=== PATIENT | male | born 1985 | race Caucasian/White ===

== ENCOUNTER 2021-05-08 09:02 | Day surgery (SDC) | payer BC ==
[~2021-05-08] VITALS: Ht 182.9 cm; Wt 93.1 kg
[~2021-05-08 09:02] MED LIST: HYDR-2761 PO; IV RINGERS,LACTATED 1000ML 1,000 ML IV SCH; PROCHLORPERAZINE 10 MG/2 ML VIAL. IVP PRN; fentaNYL PF VIAL 100 MCG/2 ML VIAL IVP PRN
[2021-05-08 09:32] VITALS: BP 125/59
[2021-05-08] MEDS ORDERED: BUPIVACAINE MPF 0.25% 30 ML VIAL. ONE ×2 (10:31)
[2021-05-08] MEDS ORDERED: fentaNYL PF VIAL 100 MCG/2 ML VIAL ONE ×3 (10:43→13:51)
[2021-05-08] MEDS ORDERED: DEXAMETHASONE SOD PHOS 20 MG/5 ML VIAL. ONE (10:43)
[2021-05-08] MEDS ORDERED: LIDOCAINE 2% PF 5 ML VIAL. ONE ×2 (10:43→13:01)
[2021-05-08] MEDS ORDERED: PROPOFOL 10 MG/ML (20ML) VIAL. IV ONE ×2 (10:43→13:35)
[2021-05-08] MEDS ORDERED: MIDAZOLAM HCL/PF 2 MG/2 ML VIAL. ONE (10:43)
[2021-05-08] MEDS ORDERED: ONDANSETRON PF 4 MG/2 ML VIAL. ONE (12:54)
[2021-05-08] MEDS ORDERED: KETOROLAC 30 MG/ML VIAL. ONE (12:55)
[2021-05-08] MEDS ORDERED: MORPHINE SULFATE 2 MG/ML INJ. ONE (13:10)
[2021-05-08] MEDS ORDERED: ACETAMINOPHEN 325 MG TABLET. PO ONE (13:30)
[2021-05-08] MEDS ORDERED: DEXTROSE 50% 25 GM / 50ML DISP.SYRIN. IV PRN (13:30)
[2021-05-08] MEDS ORDERED: POLYETHYLENE GLYCOL 3350 17 GM PACKET. PO PRN (13:30)
[2021-05-08] MEDS ORDERED: ONDANSETRON PF 4 MG/2 ML VIAL. IVP PRN (13:30)
[2021-05-08] MEDS ORDERED: GABAPENTIN 100 MG CAPSULE. PO ONE (13:30)
[2021-05-08] MEDS ORDERED: oxyCODONE/APAP 5/325 1 TAB TABLET PO ONE (13:30)
[2021-05-08] MEDS ORDERED: SEVOFLURANE 61 TO 120 MINUTES. IH ONE (13:36)
--- NOTE | 2021-05-08 13:36 | PDOC4 ---
OPERATIVE NOTE Date: Date: May 08, 2021 Pre-Op Diagnosis: Left ankle bimalleolar equivalent fracture Post-Op Diagnosis: Same as above Procedure Performed: Left ankle fracture open reduction and internal fixation with syndesmotic joint stabilization Surgeon: Asher Wheatley DPM Anesthesia Type: General Blood Loss: 5 cc Specimans Obtained: None Findings: Long spiral fracture to the distal fibula, significant disruption of the syndesmotic ligament/memory and distal syndesmotic joint with gross instability upon stress. Following the syndesmotic joint repair, stress test was negative for any diastases to the tib-fib or the medial gutter space. Fibular was restored out to length with restored ankle mortise alignment. Complications: None Operative Note: Under mild sedation, patient was brought into the operating room and placed on an operating table in a supine position. Following a formal timeout, patient's identity, procedure and procedure sites were confirmed. Following IV prophyla ctic antibiotics, general anesthesia, a well-padded thigh tourniquet was placed to the left lower extremity. Then the left lower extremity was then scrubbed, prepped and draped using standard aseptic techniques. An Esmarch was used to exsanguinate the left foot and ankle and tourniquet was inflated to 250 millimercury. The attention was directed to the left ankle where a standard lateral approach was performed. Great care was taken to identify and retract all the neurovascular bundles including the superficial peroneal nerve. All bleeders were cauterized as necessary. Superficial peroneal nerve was encountered at the anterior margin of the distal fibula which was then protected and carefully retracted out of the way. Using sharp and blunt dissection, incision was taken deep to periosteum which was incised. Intraoperatively, we found a long posterior spiral fracture at the distal fibula. The distal syndesmotic ligament and joint was grossly unstable. The hematoma was evacuated and all interposed periosteum was removed from the fracture site. The wound was irrigated with copious saline then. At this time, the fracture was reduced with 3 bone clamps. Using standard AO technique, the fracture was stabilized with 3.5 millimeter screws from A to P. Intraoperative x-ray noted adequate fibular length protestant with restored dime sign. Then a standard anatomical fibular plate was placed to the lateral fibula and temporarily affixed with 2 olive wires. Intraoperative x-ray noted adequate position allowing 2 syndesmotic fixations and adequate proximal fracture bridging. Then using standard AO techniques, a combination of locking and nonlocking 3.5 millimeter screws were used to affix the plate to the fibula. Again intraoperative x-ray noted adequate hardware position and length. Intraoperative syndesmotic stress test was performed which noted mild diastases across the tib-fib. A pelvis sharp reduction clamp was used to reduce to diastases. Adequate reduction into the incisure was noted intraoperatively. Then two Bass synchfix #5 suture buttons were used to maintain the syndesmotic reduction following standard manufacture protocol. The medial suture buttons were laid on medial malleoli were periosteum through one 1.5 centimeter stab incision. Care was taken to protect and retract all the neurovascular bundles. The tension was achieved by walking the sutures on the lateral plate and then secured with 1 squared knot. Intraoperative x-ray noted adequate mortise alignment without diastases to the medial gutter or the tib-fib. Stress view was negative for instability across the syndesmotic joint. Lateral view was insignificant for a posterior fragment or instability at the posterior syndesmotic joint. The surgical sites were irrigated with copious saline solution. They were then closed in layers with 3-0 Vicryl, 4 Monocryl and 4-0 nylon. Then the surgical sites were anesthetized with 20 cc of 0.25% Marcaine plain. The sites were dressed with Betadine soaked Adaptic, 4 x 4, ABD. The left lower extremity was then immobilized in a modified Renteria compression splint with ankle held near 90 degrees. Then the tourniquet was deflated and adequate digital perfusion was noted. Patient tolerated the procedure and anesthesia well and then transferred to PACU for continuous recovery. Pending left ankle 3 view x-ray. ASHER WHEATLEY DPM May 08, 2021 13:36
[2021-05-08] MEDS: MORPHINE SULFATE 2 MG/ML INJ. IVP PRN ×2 (13:41→13:57)
[2021-05-08] MEDS: fentaNYL PF VIAL 100 MCG/2 ML VIAL IVP PRN ×2 (13:56→14:00)
[2021-05-08] MEDS ORDERED: ASPI-630 PO (14:09)
[2021-05-08] MEDS ORDERED: GABA-585 PO (14:10)
[2021-05-08] MEDS ORDERED: HYDR-2761 PO (14:10)
[2021-05-08] MEDS ORDERED: ACET500T68 PO (14:11)
[2021-05-08] MEDS ORDERED: IBUP-1007 PO (14:13)
[2021-05-08] MEDS ORDERED: HYDROmorphone 2 MG/ML VIAL ONE (14:22)
[2021-05-08] MEDS: HYDROmorphone 2 MG/ML VIAL IVP PRN ×4 (14:25→14:57)
[2021-05-08 15:55] VITALS: BP 122/64
--- NOTE | 2021-05-08 16:36 | RAD ---
XR EXAM OF ANKLE_LEFT 3V 05/08/2021 Reason: post-op pacu / Spl. Instructions: / History: Comparison: None Technique: Ankle radiographs 05/01/2021 Findings: Interval plate and screw fixation of the distal lateral fibula with syndesmotic anchors. The ankle mo rtise is congruent. The bones are in anatomic alignment. Overlying cast material somewhat limits deta il. Impression: Interval fixation of distal fibular fracture with syndesmotic anchors in anatomic alignment. Electronically signed by: Mehran Gaspar (05/08/2021 4:34 PM) [id number]
[2021-05-09] MEDS ORDERED: SENNOSIDES/DOCUSATE 8.6/50MG TABLET. PO SCH (09:00)
== END 2021-05-08 16:20 | disposition home or self-care (01) ==
LOC: SURG 09:02
PROVIDERS: ATTEND Podiatrist
DX: S82.842A Displaced bimalleolar fracture of left lower leg, initial encounter for closed fracture (principal); Z87.891 Personal history of nicotine dependence; Z79.82 Long term (current) use of aspirin; Z79.899 Other long term (current) drug therapy; Z20.822 Contact with and (suspected) exposure to COVID-19; X58.XXXA Exposure to other specified factors, initial encounter; Y93.89 Activity, other specified; Y92.89 Other specified places as the place of occurrence of the external cause; Y99.8 Other external cause status
CPT/HCPCS: 27814; 73610; 87426; A4930; A6223; A6402; A6449; C1713; J0690; J1100; J1170; J1885; J2250; J2270; J2405; J2704; J3010; J3490; 76000; A4223; A4322; A6455